=== PATIENT | male | born 1980 | race Caucasian/White ===

== ENCOUNTER 2022-11-06 11:58 | Emergency (ER) | payer MEDICAID ==
[~2022-11-06] VITALS: Ht 182.9 cm; Wt 109.6 kg
[2022-11-06 14:11] VITALS: BP 145/92
[2022-11-06] MEDS ORDERED: EPINEPHrine HCL 1 MG/1 ML AMP SC ONE (14:45)
== END 2022-11-06 15:04 | disposition home or self-care (01) ==
LOC: ER 11:58
DX: T78.40XA Allergy, unspecified, initial encounter (principal); Y92.89 Other specified places as the place of occurrence of the external cause
CPT/HCPCS: 96372; 99283; J0171